=== PATIENT | female | born 1985 | race American Indian/Alaskan Native ===

== ENCOUNTER 2018-01-29 20:09 | Inpatient (IN) | payer OTHER ==
[2018-01-29] MEDS ORDERED: NACL 0.9% 1000 ML 1,000 ML IV ONE (20:26)
--- NOTE | 2018-01-29 20:32 | Emergency Department Report ---
History of Present Illness - General Chief Complaint: Overdose Stated Complaint: POSS OD Time Seen by Provider: 01/29/18 20:27 Source: patient, family, EMS Mode of arrival: Stretcher Limitations: Altered Mental Status - History of Present Illness Initial Comments: 32-year-old female with history of bipolar depression, has been more depressed recently, and reports that he found patient on arrival at home approximately 3 hours prior to patient arrival and, found her resting in bed, and he left her initially, but then came approximately an hour and a half later when he found her vomiting, with a note, apparently for suicidal intention, reporting "please cremate me". He contacted 911, EMS found patient somnolent but arousable, with stable vital signs, and 92% oxygen saturation on room air. She was transported for evaluation and treatment here. arrived shortly after, reports that patient has long-standing history of bipolar disorder, since she was a teenager, but all of her treatment had been in [place], and she has not seen a physician since they moved here 6 months ago. There were multiple different medications in a single ibuprofen bottle, dated 05/08/2017, and he reports that she probably took ibuprofen, Seroquel, unknown sedative or sleeping pill, and blue pills labeled serotonin. She has long-standing history of depression, but is not clear that she's had any prior suicide attempts, with possible exception of her initial diagnosis in her teenage years, when patient was not known to her at that time MD Complaint: intentional overdose -: hour(s) (3) Intent: suicide attempt How Overdose Was Discovered: family/friend present ( found patient) Context: Intentional Overdose: other (chronic depression, bipolar disorder) Treatments Prior to Arrival: none (vomited spontaneously) - Related Data Allergies Allergy/AdvReac Type Severity Reaction Status Date / Time Sulfa (Sulfonamide Allergy Unknown Verified 01/29/18 20:14 Antibiotics) ED Review of Systems ROS: Stated complaint: POSS OD Other details as noted in HPI Comment: gives much of history, no preceding emergency symptoms Constitutional: denies: chills, fever Respiratory: denies: cough, shortness of breath, wheezing Cardiovascular: denies: chest pain, palpitations Endocrine: no symptoms reported Gastrointestinal: denies: abdominal pain, nausea, diarrhea Musculoskeletal: denies: back pain, joint swelling, arthralgia Skin: denies: rash, lesions Neurological: denies: headache, weakness, paresthesias Psychiatric: depression. denies: suicidal thoughts (no history of suicidal thoughts recently) ED Past Medical Hx - Past Medical History Previous Medical History?: Yes Hx Psychiatric Treatment: Yes (Depression, Bipolar, previous suicide attempt) - Social History Smoking Status: Current Some Day Smoker ED Physical Exam - General Limitations: Altered Mental Status General appearance: obtunded (rales mobile vocal stimulus) - Head Head exam: Present: atraumatic - Eye Eye exam: Present: PERRL (pupils 4 mm, equally responsive,), EOMI (conjugate gaze) - ENT ENT exam: Present: normal exam, TM's normal bilaterally, other (small amount of vomitus around mouth) - Neck Neck exam: Present: normal inspection. Absent: tenderness - Respiratory Respiratory exam: Present: normal lung sounds bilaterally - Cardiovascular Cardiovascular Exam: Present: regular rate. Absent: systolic murmur, diastolic murmur - GI/Abdominal GI/Abdominal exam: Present: soft. Absent: tenderness, guarding, rebound - Rectal Rectal exam: Present: deferred - External exam: Present: normal external exam - Neurological Exam Neurological exam: Present: altered (obtunded, sedated, moves all extremities spontaneously, does not cooperate for commands) ED Course Vital Signs 01/29/18 01/29/18 01/29/18 20:15 20:28 20:56 Temperature 98.2 F Pulse Rate 102 H 92 H Respiratory 12 12 15 Rate Blood Pressure 158/94 O2 Sat by Pulse 97 97 99 Oximetry 01/30/18 01/30/18 01/30/18 00:31 01:00 01:30 Temperature Pulse Rate 88 83 84 Respiratory 16 22 16 Rate Blood Pressure 148/92 159/94 123/78 O2 Sat by Pulse 99 95 99 Oximetry 01/30/18 01/30/18 02:01 02:30 Temperature Pulse Rate 82 101 H Respiratory 17 19 Rate Blood Pressure 135/78 146/88 O2 Sat by Pulse 96 96 Oximetry - Reevaluation(s) Reevaluation #1: 01/29/18 23:03 Patient much more alert, but now gives history that she also took Tylenol PM, reports that she been feeling badly over the past couple days, says she does not want to , but was feeling very depressed, and did leave a suicide note. Stable, blood pressure is 139/83, pulse is 86, oxygen saturation is 96. Acetaminophen level is elevated at 72, which is in the toxic range, and she will need acetylcysteine antidote, and will need admission on this basis. Reevaluation #2: 01/30/18 00:04 Patient is stable on repeat examination, a good bit more alert, is ambulatory to help try and clean herself at the sink, having vomited again, but fairly clear fluid, no pill particles seen. Blood pressure is 136/76, pulse is 87 and regular, respiratory rate is 15 and oxygen saturation is 100%. Patient has a single sustain infusion going at this time. 1013 confinement signed on the basis of suicide attempt with intentional ingestion, and patient can be evaluated by psychiatric assessment while in intensive care. - Consultations Consultation #1: 01/29/18 23:06 Hospitalist on-call, Dr. Woods, contacted with findings of patient's acute suicide attempt and toxic Tylenol levels, as well as orders for acetylcysteine with reflex dosing of second and third doses successively. He will admit patient to intensive care, and I will place patient under 1013 confinement. 01/29/18 23:12 ED Medical Decision Making - Lab Data Result diagrams: 01/29/18 20:29 01/29/18 20:29 - EKG Data -: EKG Interpreted by Me (narrow complex sinus tachycardia, nonspecific, no acute ST-T wave elevation) EKG shows normal: sinus rhythm, intervals (QT interval normal at 469 ms corrected. QRS interval 93 ms AL interval 158 ms) Rate: tachycardia - Medical Decision Making Patient has taken an overdose, intentional ingestion, multiple medications, including acetaminophen, which is at an elevated level. She will need acetylcysteine antidote, and will need admission for further dosing, and observation. Given that she has made a suicide attempt, she will also need psychiatric evaluation, but will be placed under 1013 confinement. - Differential Diagnosis ingestion, suicide attempt, toxic ingestion Critical care time in (mins) excluding proc time.: 60 Critical care attestation.: If time is entered above; I have spent that time in minutes in the direct care of this critically ill patient, excluding procedure time. Critical Care Time: 60 minutes of critical care time was provided in assessing and stabilizing this patient with no known drug ingestion, with ultimate diagnosis of acetaminophen toxicity, as well as making preparations for administration of antidote and appropriate hospitalization. ED Disposition Clinical Impression: Bipolar 1 disorder Intentional acetaminophen overdose Qualifiers: Encounter type: initial encounter Qualified Code(s): T39.1X2A - Poisoning by 4- Aminophenol derivatives, intentional self-harm, initial encounter Depression Qualifiers: Depression Type: unspecified Qualified Code(s): F32.9 - Major depressive disorder, single episode, unspecified Disposition: DC-09 OP ADMIT IP TO THIS HOSP Is pt being admited?: Yes Does the pt Need Aspirin: No Condition: Stable Time of Disposition: 23:14
[2018-01-29 20:56] LABS: Basophils % (Auto) 0.6 % (0.0-1.8); Eosinophils # (Auto) 0.2 K/mm3 (0.0-0.4); Eosinophils % (Auto) 5.1 % (0.0-4.3); Hematocrit 36.8 % (30.3-42.9); Hemoglobin 12.3 gm/dl (10.1-14.3); Lymphocytes # (Auto) 1.5 K/mm3 (1.2-5.4); Lymphocytes % (Auto) 37.3 % (13.4-35.0); Mean Corpuscular HGB Conc 34 % (30-34); Mean Corpuscular Hemoglobin 27 pg (28-32); Mean Corpuscular Volume 82 fl (79-97); Monocytes # (Auto) 0.4 K/mm3 (0.0-0.8); Monocytes % (Auto) 9.1 % (0.0-7.3); Platelet Count 336 K/mm3 (140-440); Red Cell Distribution Width 14.4 % (13.2-15.2)
[2018-01-29 21:03] LABS: Bilirubin,Urine NEG (Negative); Blood,Urine MOD (Negative); Color,Urine Yellow (Yellow); Mucus,Urine FEW /HPF; Protein,Urine <15 mg/dL mg/dL (Negative); Urobilinogen,Urine < 2.0 mg/dL (<2.0)
[2018-01-29 21:04] LABS: BUN/Creatinine Ratio 20; Blood Urea Nitrogen 12 mg/dL (7-17); Hemolysis Index 2
[2018-01-29 21:06] LABS: Amphetamine Screen,Urine PRESUMPTIVE NEGATIVE; Benzodiazepines Screen,Urine PRESUMPTIVE NEGATIVE; Cannabinoid Screen,Urine PRESUMPTIVE NEGATIVE; Cocaine Screen,Urine PRESUMPTIVE NEGATIVE; Methadone Screen,Urine PRESUMPTIVE NEGATIVE; Opiate Screen,Urine PRESUMPTIVE NEGATIVE
[2018-01-29 21:30] LABS: Creatine Kinase MB 1.1 ng/mL (0.0-4.0)
--- NOTE | 2018-01-29 22:00 | XRay Report ---
FINAL REPORT PROCEDURE: XR CHEST 1V AP TECHNIQUE: Chest radiograph anteroposterior view. CPT 98235 HISTORY: altered mental status ingestion COMPARISON: No prior studies are available for comparison. FINDINGS: Heart: Normal. Mediastinum/Vessels: Normal. Lungs/Pleural space: Normal. Bony thorax: No acute osseous abnormality. Life support devices: None. IMPRESSION: No acute cardiopulmonary abnormality.
[2018-01-29] MEDS ORDERED: D5W IV ONE (23:30)
[2018-01-29] MEDS ORDERED: ACETADOTE IV ONE (23:30)
[2018-01-29] MEDS ORDERED: ZOFRAN ONE (23:56)
[2018-01-30] MEDS ORDERED: ZOFRAN IV ONE (00:16)
[2018-01-30] MEDS ORDERED: ACETADOTE IV ONE ×2 (00:30→05:00)
[2018-01-30] MEDS ORDERED: D5W IV ONE ×2 (00:30→05:00)
[2018-01-30] MEDS ORDERED: REGLAN ONE (00:47)
[2018-01-30] MEDS ORDERED: REGLAN IV ONE (01:12)
[2018-01-30] MEDS ORDERED: ZOFRAN IV PRN (02:40)
[2018-01-30] MEDS: HEPARIN SUB-Q SCH ×3 (03:00→23:33)
[2018-01-30 03:28] LABS: Alanine Aminotransferase 17 units/L (7-56)
[2018-01-30 03:29] LABS: Bilirubin,Direct < 0.2 mg/dL (0-0.2)
[2018-01-30] MEDS: NACL 0.9% 1000 ML 1,000 ML IV SCH ×2 (06:50→17:15)
[2018-01-30 07:28] LABS: Alanine Aminotransferase 17 units/L (7-56); Albumin 3.8 g/dL (3.9-5)
[2018-01-30 07:30] LABS: Bilirubin,Direct < 0.2 mg/dL (0-0.2)
--- NOTE | 2018-01-30 08:26 | History and Physical Report ---
CHIEF COMPLAINT: Drug overdose with mainly Tylenol and depression. HISTORY OF PRESENTING ILLNESS: The patient is a 32-year-old female with known history of depression and bipolar disorder, who was found by to be at home with nausea and vomiting and a suicidal note to cremate her. He came in initially and found the on the bed and then later on noticed that she was vomiting and then tried to ____, found the suicide note. The patient denies history of chest pain. Denied history of shortness of breath and said that the patient has been on medication for depression until the last 6 months when they moved over to [place] from [place] and since then she has not been on medication and has never had any suicidal intention or attempt in the past except for this recent event. There is no history of dizziness. No history of chest pain. The patient was brought to the Emergency Room, where she was evaluated and found to have elevated level of Tylenol. PAST MEDICAL HISTORY: Pertinent for the depression and bipolar disorder. PAST SURGICAL HISTORY: Unknown. FAMILY HISTORY: Noncontributory. SOCIAL HISTORY: The patient smokes cigarettes, does not drink alcohol and does not use illicit drugs. MEDICATIONS: The patient's home medications are not clearly defined. said he thinks, she is on Seroquel and on no sedative or sleeping pill and ____. ALLERGIES: THE PATIENT IS ALLERGIC TO SULFA DRUGS. REVIEW OF SYSTEMS: CONSTITUTIONAL: There is no fever, no chills, no diaphoresis. HEENT: There is no headache or sore throat. CARDIOVASCULAR: There is no chest pain or orthopnea. RESPIRATORY: There is no shortness of breath or cough. GASTROINTESTINAL: Nausea and vomiting present. No abdominal pain, no diarrhea, no constipation. NEUROLOGICAL: There is no numbness, no dizziness and no change in mental status. MUSCULOSKELETAL: There is no joint pain or swelling. DERMATOLOGICAL: There is no skin rash or itching. GENITOURINARY: There is no dysuria, hematuria or flank pain. Rest of system review is normal. PHYSICAL EXAMINATION: GENERAL: At the time of exam, the patient was found to be alert and oriented x 3. Hooks with depressed mood, but not in acute distress. VITAL SIGNS: Initial vital signs show temperature of 98.2 degrees Fahrenheit, pulse of 102, respirations 12, blood pressure 158/94, and O2 sat of 97% on room air. HEENT: Showed pupils to be equal, round, and reactive to light and accommodation. Extraocular muscles are intact. NECK: Supple with no JVD or carotid bruit. CARDIOVASCULAR SYSTEM: Showed normal first and second heart sounds with no gallops or murmurs. RESPIRATORY SYSTEM: Showed good air entry on both sides of the lungs with no abnormal breath sounds. GASTROINTESTINAL SYSTEM: Showed abdomen to be full, soft, and nontender with no organomegaly or rigidity. NEUROLOGICAL SYSTEM: Showed no focal deficits. MUSCULOSKELETAL SYSTEM: Showed no joint swelling or tenderness. DERMATOLOGICAL SYSTEM: Showed no skin rash. GENITOURINARY: Showing no costovertebral angle tenderness. PERTINENT LABORATORY DATA AND IMAGING STUDIES: The patient had a CBC done with low white cells of 4, normal hemoglobin, normal hematocrit with CBC differential showing elevated lymphocyte count of 37.3% and elevated monocyte count of 9.1%, and elevated eosinophil count of 5.1%, with blood gas being unremarkable. The patient's chemistry shows normal electrolytes, unremarkable renal function test, and unremarkable blood glucose level. Cardiac enzymes came back normal. Urinalysis came back normal. Toxicology screen shows elevated acetaminophen level of 72.5 with an unremarkable salicylate level. The patient is negative for all the other illicit drugs ranging from barbiturates, amphetamine through cocaine to marijuana. IMAGING STUDIES: The patient had a chest x-ray done that shows no active cardiopulmonary lesion. DIAGNOSES: 1. Tylenol overdose. 2. Suicidal attempt. 3. Depression. PLAN: The patient will be admitted to ICU and will continue the treatment with acetylcysteine for that in the Emergency Room according to Poison Control recommendation. Acetylcysteine has been already calculated to be given in the initial dose at 150 mg/kg with the second dose of ____ mg per kg for 4 hours and the batch of 100 mg/kg for 16 hours. The patient will have liver function tests and magnesium level checked stat since they have not been checked before and they will have repeat liver function tests and Tylenol level every 4 hours of 3 more levels, and the patient would be on IV Zofran 4 mg every 6 hours as needed for nausea and vomiting. DVT prophylaxis through heparin 5000 units subcutaneously q.12 hours, and the patient will be on IV normal saline at 125 mL an hour. The patient's diet will be regular diet. JOB# [id number] OCN/NTS
--- NOTE | 2018-01-30 09:28 | Consultation ---
History of Present Illness Consult date: 01/30/18 Reason for consult: other (drug overdose) History of present illness: Called to evaluate case of a 32-year-old -Martiniqu[place] female, admitted to the ICU due to acetaminophen overdose, suicidal attempt. According to the admission record, the patient was found unresponsive by her who poorly after taking large amounts of Tylenol pills and with suicide note by her side. She had been previously on treatment for depression, this also according to the record. They have recently moved from [place] and she had been reportedly without active depression treatment/medications for the past 6 months. There is to be admitted at arrival but no gross respiratory or airway compromise. [facility] once call and she was given initially acetylcysteine 150 mg/ kilogram IV and is currently following acetylcysteine acetaminophen overdose protocol. Called to evaluate during ICU monitoring. Currently no respiratory complaints including vomiting cough expectoration or chest pain. Initial laboratories noted below: Laboratory Tests 01/29/18 01/29/18 01/29/18 20:29 20:29 20:29 Glucose 111 H Total Bilirubin Direct Bilirubin Indirect Bilirubin AST ALT Alkaline Phosphatase HCG, Qual Salicylates < 0.3 L Urine Opiates Screen Urine Methadone Screen Acetaminophen 72.5 H Ur Barbiturates Screen Ur Phencyclidine Scrn Ur Amphetamines Screen U Benzodiazepines Scrn Urine Cocaine Screen U Marijuana (THC) Screen Plasma/Serum Alcohol 01/29/18 01/29/18 01/29/18 20:29 20:29 20:40 Glucose Total Bilirubin Direct Bilirubin Indirect Bilirubin AST ALT Alkaline Phosphatase HCG, Qual Negative Salicylates Urine Opiates Screen Presumptive negative Urine Methadone Screen Presumptive negative Acetaminophen Ur Barbiturates Screen Presumptive negative Ur Phencyclidine Scrn Presumptive negative Ur Amphetamines Screen Presumptive negative U Benzodiazepines Scrn Presumptive negative Urine Cocaine Screen Presumptive negative U Marijuana (THC) Screen Presumptive negative Plasma/Serum Alcohol 0.06 01/30/18 01/30/18 01/30/18 02:46 02:46 06:39 Glucose Total Bilirubin 0.30 0.40 Direct Bilirubin < 0.2 < 0.2 Indirect Bilirubin 0.1 0.2 AST 14 16 ALT 17 17 Alkaline Phosphatase 66 67 HCG, Qual Salicylates Urine Opiates Screen Urine Methadone Screen Acetaminophen 29.4 Ur Barbiturates Screen Ur Phencyclidine Scrn Ur Amphetamines Screen U Benzodiazepines Scrn Urine Cocaine Screen U Marijuana (THC) Screen Plasma/Serum Alcohol 01/30/18 06:39 Glucose Total Bilirubin Direct Bilirubin Indirect Bilirubin AST ALT Alkaline Phosphatase HCG, Qual Salicylates Urine Opiates Screen Urine Methadone Screen Acetaminophen 7.4 L Ur Barbiturates Screen Ur Phencyclidine Scrn Ur Amphetamines Screen U Benzodiazepines Scrn Urine Cocaine Screen U Marijuana (THC) Screen Plasma/Serum Alcohol Past History Past Medical History: other (depression) Medications and Allergies Allergies Allergy/AdvReac Type Severity Reaction Status Date / Time Sulfa (Sulfonamide Allergy Unknown Verified 01/29/18 20:14 Antibiotics) Active Meds: Active Medications Heparin Sodium (Porcine) (Heparin) 5,000 unit SUB-Q Q12HR LOLIS Last Admin: 01/30/18 03:00 Dose: 5,000 unit Acetylcysteine 8,755 mg/ (Dextrose) 1,043.775 mls @ 65.236 mls/hr IV ONCE ONE Stop: 01/30/18 20:59 Last Admin: 01/30/18 05:14 Dose: 65.236 mls/hr Sodium Chloride (Nacl 0.9% 1000 Ml) 1,000 mls @ 125 mls/hr IV DIRECT LOLIS Last Admin: 01/30/18 06:50 Dose: 125 mls/hr Ondansetron HCl (Zofran) 4 mg IV Q8H PRN PRN Reason: Nausea And Vomiting Review of Systems Constitutional: no weight loss, no weight gain, no fever, no chills, no sweats, no fatigue Breasts: deferred Cardiovascular: no chest pain, no orthopnea, no palpitations, no rapid/ irregular heart beat, no edema, no shortness of breath, no dyspnea on exertion Respiratory: no cough, no cough with sputum, no excessive sputum, no hemoptysis , no congestion, no wheezing, no pleurisy Gastrointestinal: no abdominal pain, no nausea, no vomiting, no diarrhea, no melena, no hematochezia, no loss of appetite, no early satiety Genitourinary Female: no dyspareunia, no dysmenorrhea Menstruation: no ammenorrhea Musculoskeletal: no neck stiffness, no neck pain Integumentary: no rash, no pruritis, no redness, no sores Neurological: no head injury, no transient paralysis, no paralysis, no weakness , no parathesias, no numbness, no tingling, no syncope, no convulsions Psychiatric: anxiety, insomnia, depression Hematologic/Lymphatic: no easy bruising, no easy bleeding, no lymphadenopathy, no lymphedema Physical Examination Vital signs: Vital Signs Temp Pulse Resp BP Pulse Ox 98.2 F 102 H 12 158/94 97 01/29/18 20:15 01/29/18 20:15 01/29/18 20:15 01/29/18 20:15 01/29/18 20:15 General appearance: no acute distress, alert Eyes: non-icteric ENT: oropharynx moist Neck: supple, no JVD Effort: normal Ascultation: Bilateral: clear Percussion: Bilateral: not dull Cardiovascular: regular rate and rhythm Gastrointestinal: normoactive bowel sounds, non-distended Integumentary: normal Extremities: no cyanosis, no edema, pink and warm Musculoskeletal: no deformities normal mental status, non-focal exam, CN II-XII normal, motor strength normal and depressed, other Results - Laboratory Findings CBC and BMP: 01/29/18 20:29 01/29/18 20:29 ABG POC ABG pH 7.370 (7.35-7.45) 01/29/18 21:01 POC ABG pCO2 41.2 (35-45) 01/29/18 21:01 POC ABG pO2 135 (80-105) H 01/29/18 21:01 POC ABG HCO3 23.8 01/29/18 21:01 POC ABG Total CO2 25 01/29/18 21:01 POC ABG O2 Sat 99 01/29/18 21:01 Abnormal lab findings: Abnormal Labs 01/29/18 01/29/18 01/29/18 20:29 20:29 20:29 WBC MCH Lymph % (Auto) Ida % (Auto) Eos % (Auto) POC ABG pO2 Creatinine 0.6 L Glucose 111 H Albumin Salicylates < 0.3 L Acetaminophen 72.5 H 01/29/18 01/29/18 01/30/18 20:29 21:01 06:39 WBC 4.0 L MCH 27 L Lymph % (Auto) 37.3 H Ida % (Auto) 9.1 H Eos % (Auto) 5.1 H POC ABG pO2 135 H Creatinine Glucose Albumin 3.8 L Salicylates Acetaminophen 01/30/18 06:39 WBC MCH Lymph % (Auto) Ida % (Auto) Eos % (Auto) POC ABG pO2 Creatinine Glucose Albumin Salicylates Acetaminophen 7.4 L Assessment and Plan Intentional acetaminophen overdose. Suicide attempt Depression, major History of bipolar disorder Recommendations We'll continue with acetylcysteine protocol and discontinue once consistently with normal ALT and low acetaminophen level Monitor LFT Gentle fluids for hydration Elevate head of bed, aspiration precautions Respiratory monitoring. Chest x-ray is unremarkable for aspiration pneumonia at this time. Oximetry appears to be adequate Psychiatry consultation We'll consider transfer out of the unit once the above has been completed with patient she'll be 213 Status in the Meantime Critical care time was 40 minutes of [id number] evaluation and coordination of care
[2018-01-30 10:32] LABS: Alanine Aminotransferase 15 units/L (7-56); Albumin 3.7 g/dL (3.9-5)
[2018-01-30 10:37] LABS: Bilirubin,Direct < 0.2 mg/dL (0-0.2)
--- NOTE | 2018-01-30 12:41 | Event Note ---
Date: 01/30/18 Patient was seen and evaluated this morning, patient was admitted this morning, patient was admitted for Tylenol overdose with suicidal intent, history of bipolar disorder. Electrolytes are normal, we'll continue to follow liver function test, INR. Psych consult placed. Patient is hemodynamically stable, alert and oriented, good to be transferred to the [facility] floor.
[2018-01-30] MEDS ORDERED: APRESOLINE IV PRN (15:16)
[2018-01-30 18:58] LABS: Alanine Aminotransferase 13 units/L (7-56); Albumin 3.4 g/dL (3.9-5); Bilirubin,Direct < 0.2 mg/dL (0-0.2)
[2018-01-30 19:28] LABS: INR 1.01 (0.87-1.13)
[2018-01-30 22:18] LABS: Alanine Aminotransferase 12 units/L (7-56)
[2018-01-31] MEDS: NACL 0.9% 1000 ML 1,000 ML IV SCH ×2 (05:21→17:04)
[2018-01-31 06:28] LABS: INR 0.99 (0.87-1.13)
[2018-01-31 06:48] LABS: Alanine Aminotransferase 12 units/L (7-56); Albumin 3.6 g/dL (3.9-5)
[2018-01-31 07:04] LABS: Bilirubin,Direct < 0.2 mg/dL (0-0.2)
--- NOTE | 2018-01-31 08:05 | Discharge Summary ---
Providers - Providers Date of Admission: 01/30/18 00:28 Attending physician: ESTHER GU MD 01/30/18 00:51 Consult to Physician [CONS] Routine Comment: Consulting Provider: TEVIN PINEDA Physician Instructions: Reason For Exam: CCU admit 01/30/18 08:06 Consult to Mental Health [CONS] Routine Reason For Exam: sucidal attempt Place consult to:: mental health Notified:: Tim Ramos NP Was contact made?: Yes If yes, spoke with:: Tim Ramos NP Time called:: 12:35 Comment:: Spoke with Mr. Ramos about consult for patient who is 1013. Primary care physician: APRIL MICHAEL Hospitalization Reason for admission: SUICIDAL IDEATION Condition: Stable Hospital course: Patient's [id number] female with extensive history of depression and also family history of depression was admitted to the hospital after she was found unresponsive following taking large amounts of suspected Tylenol pills was a suicidal note by her side to cremate her. On admission the patient was monitored in the ICU following initial administration of 450 mg of acetylcysteine. Her Tylenol level and liver enzymes are monitored which have remained stable. She was significantly improved and transferred out of the ICU to the medical floor she continues to do very well without any respiratory, gastroenterology or cardiac complaints. Patient was initially monitored in the ICU and then transferred to the medical floor doing well. She was evaluated by psychiatrist. Also evaluation was done by pulmonary. Patient continued on 1013 until she satisfied to staff that she is no longer try to herself or to anyone else. Family included an aunt who is psychotherapist when available patient was willing to sign a safety contract. Stable for discharge at this time extensive counseling was provided to the patient also hot lines for depression management was also provided and follow-up with psychiatrist. Acetaminophen overdose. Suicide attempt Depression, major HTN History of bipolar disorder EtOH abuse Disposition: - TO HOME OR SELFCARE Time spent for discharge: 35 MINS Core Measure Documentation - Palliative Care Palliative Care/ Comfort Measures: Not Applicable - Core Measures Any of the following diagnoses?: none - VTE Discharge Requirements Deep Vein Thrombosis/Pulmonary Embolism Present on Admission: No Exam - Physical Exam Narrative exam: VITAL SIGNS: Reviewed. GENERAL: The patient appeared well nourished and normally developed. Vital signs as documented. HEAD: No signs of head trauma. EYES: Pupils are equal. Extraocular motions intact. EARS: Hearing grossly intact. MOUTH: Oropharynx is normal. NECK: No adenopathy, no JVD. CHEST: Chest with clear breath sounds bilaterally. No wheezes, rales, or rhonchi. CARDIAC: Regular rate and rhythm. S1 and S2, without murmurs, gallops, or rubs. VASCULAR: No Edema. Peripheral pulses normal and equal in all extremities. ABDOMEN: Soft, without detectable tenderness. No sign of distention. No rebound or guarding, and no masses palpated. Bowel Sounds normal. MUSCULOSKELETAL: Good range of motion of all major joints. Extremities without clubbing, cyanosis or edema. NEUROLOGIC EXAM: Alert and oriented x 3. No focal sensory or strength deficits. Speech normal. Follows commands. PSYCHIATRIC: Mood normal. SKIN: Old well-healed scars. - Constitutional Vitals: Temp Pulse Resp BP Pulse Ox 98.7 F 120 H 18 154/85 97 01/30/18 20:00 01/30/18 18:41 01/30/18 18:41 01/30/18 18:41 01/30/18 18:41 Plan Activity: advance as tolerated, fall precautions Diet: regular Special Instructions: record daily BP diary, other (ETOH CESSATION) Follow up with: APRIL MICHAEL MD [Primary Care Provider] - 3-5 Days JUSTICE LUTHER MD [Staff Physician] - 7 Days
[2018-01-31] MEDS: HEPARIN SUB-Q SCH ×2 (13:44→22:40)
--- NOTE | 2018-01-31 15:00 | Progress Note ---
Assessment and Plan Assessment and plan: Patient's [id number] female with extensive history of depression and also family history of depression was admitted to the hospital after she was found unresponsive following taking large amounts of suspected Tylenol pills was a suicidal note by her side to cremate her. On admission the patient was monitored in the ICU following initial administration of 450 mg of acetylcysteine. Her Tylenol level and liver enzymes are monitored which have remained stable. She was significantly improved and transferred out of the ICU to the medical floor she continues to do very well without any respiratory, gastroenterology or cardiac complaints. Acetaminophen overdose. Suicide attempt Depression, major HTN History of bipolar disorder Plan Continue current 1013. Discontinue IV fluids, patient tolerating diet Extensive counselling greater than 15 mins provided Patient is medically stable for transfer to inpatient Psych DVT/GI prophy Plan discussed with patient and the Psych team. All questions answered History Interval history: Patient is seen today for: Suicidal attempt, overdose intentional. Seen and examined at bedside; 24hour events reviewed; nursing staff ; no adverse overnight events reported to me; Denies any chest pain, nausea, vomiting , diarrhea No fever noted blood pressure controlled Hospitalist Physical - Physical exam Narrative exam: VITAL SIGNS: Reviewed. GENERAL: The patient appeared well nourished and normally developed. Vital signs as documented. HEAD: No signs of head trauma. EYES: Pupils are equal. Extraocular motions intact. EARS: Hearing grossly intact. MOUTH: Oropharynx is normal. NECK: No adenopathy, no JVD. CHEST: Chest with clear breath sounds bilaterally. No wheezes, rales, or rhonchi. CARDIAC: Regular rate and rhythm. S1 and S2, without murmurs, gallops, or rubs. VASCULAR: No Edema. Peripheral pulses normal and equal in all extremities. ABDOMEN: Soft, without detectable tenderness. No sign of distention. No rebound or guarding, and no masses palpated. Bowel Sounds normal. MUSCULOSKELETAL: Good range of motion of all major joints. Extremities without clubbing, cyanosis or edema. NEUROLOGIC EXAM: Alert and oriented x 3. No focal sensory or strength deficits. Speech normal. Follows commands. PSYCHIATRIC: Mood normal. SKIN: Old well-healed scars. - Constitutional Vitals: Temp Pulse Resp BP Pulse Ox 98.7 F 78 16 142/103 97 01/30/18 20:00 01/31/18 11:00 01/30/18 22:00 01/31/18 11:00 01/30/18 18:41 Results - Labs CBC & Chem 7: 01/29/18 20:29 01/29/18 20: Labs: Laboratory Last Values WBC 4.0 K/mm3 (4.5-11.0) L 01/29/18 20: RBC 4.50 M/mm3 (3.65-5.03) 01/29/18 20: Hgb 12.3 gm/dl (10.1-14.3) 01/29/18 20: Hct 36.8 % (30.3-42.9) 01/29/18 20: MCV 82 fl (79-97) 01/29/18: MCH 27 pg (28-32) L 01/29/18: MCHC 34 % (30-34) 01/29/18: RDW 14.4 % (13.2-15.2) 01/29/18: Plt Count 336 K/mm3 (140-440) 01/29/18 20: Lymph % (Auto) 37.3 % (13.4-35.0) H 01/29/18 20: [place] % (Auto) 9.1 % (0.0-7.3) H 01/29/18: Eos % (Auto) 5.1 % (0.0-4.3) H 01/29/18: Baso % (Auto) 0.6 % (0.0-1.8) 01/29/18: Lymph # 1.5 K/mm3 (1.2-5.4) 01/29/18 20: [place] # 0.4 K/mm3 (0.0-0.8) 01/29/18 20: Eos # 0.2 K/mm3 (0.0-0.4) 01/29/18 20: Baso # 0.0 K/mm3 (0.0-0.1) 01/29/18 20: Seg Neutrophils % 47.9 % (40.0-70.0) 01/29/18 20: Seg Neutrophils # 1.9 K/mm3 (1.8-7.7) 01/29/18 20: PT 13.6 Sec. (12.2-14.9) 01/31/18 05:28 INR 0.99 (0.87-1.13) 01/31/18 05:28 POC ABG pH 7.370 (7.35-7.45) 01/29/18 21:01 POC ABG pCO2 41.2 (35-45) 01/29/18 21:01 POC ABG pO2 135 (80-105) H 01/29/18 21:01 POC ABG HCO3 23.8 01/29/18 21:01 POC ABG Total CO2 25 01/29/18 21:01 POC ABG O2 Sat 99 01/29/18 21:01 POC ABG Base Excess -1 01/29/18 21:01 FiO2 28 % 01/29/18 21:01 Sodium 140 mmol/L (137-145) 01/29/18 20:29 Potassium 3.6 mmol/L (3.6-5.0) 01/29/18 20:29 Chloride 102.2 mmol/L (98-107) 01/29/18 20:29 Carbon Dioxide 24 mmol/L (22-30) 01/29/18 20:29 Anion Gap 17 mmol/L 01/29/18 20:29 BUN 12 mg/dL (7-17) 01/29/18 20:29 Creatinine 0.6 mg/dL (0.7-1.2) L 01/29/18 20:29 Estimated GFR > 60 ml/min 01/29/18 20:29 BUN/Creatinine Ratio 20 % 01/29/18 20:29 Glucose 111 mg/dL (65-100) H 01/29/18 20:29 Calcium 9.0 mg/dL (8.4-10.2) 01/29/18 20:29 Magnesium 1.70 mg/dL (1.7-2.3) 01/30/18 02:46 Total Bilirubin 0.40 mg/dL (0.1-1.2) 01/31/18 05:28 Direct Bilirubin < 0.2 mg/dL (0-0.2) 01/31/18 05:28 Indirect Bilirubin 0.2 mg/dL 01/31/18 05:28 AST 9 units/L (5-40) 01/31/18 05:28 ALT 12 units/L (7-56) 01/31/18 05:28 Alkaline Phosphatase 71 units/L (35-129) 01/31/18 05:28 Total Creatine Kinase 100 units/L (30-135) 01/29/18 21:13 CK-MB (CK-2) 1.1 ng/mL (0.0-4.0) 01/29/18 21:13 CK-MB (CK-2) Rel Index 1.1 (0-4) 01/29/18 21:13 Troponin T < 0.010 ng/mL (0.00-0.029) 01/29/18 21:13 Total Protein 6.8 g/dL (6.3-8.2) 01/31/18 05:28 Albumin 3.6 g/dL (3.9-5) L 01/31/18 05:28 Albumin/Globulin Ratio 1.1 % 01/31/18 05:28 HCG, Qual Negative (Negative) 01/29/18 20:29 Urine Color Yellow (Yellow) 01/29/18 20:40 Urine Turbidity Clear (Clear) 01/29/18 20:40 Urine pH 5.0 (5.0-7.0) 01/29/18 20:40 Ur Specific [place] 1.017 (1.003-1.030) 01/29/18 20:40 Urine Protein <15 mg/dl mg/dL (Negative) 01/29/18 20:40 Urine Glucose (UA) Neg mg/dL (Negative) 01/29/18 20:40 Urine Ketones Neg mg/dL (Negative) 01/29/18 20:40 Urine Blood Mod (Negative) 01/29/18 20:40 Urine Nitrite Neg (Negative) 01/29/18 20:40 Urine Bilirubin Neg (Negative) 01/29/18 20:40 Urine Urobilinogen < 2.0 mg/dL (<2.0) 01/29/18 20:40 Ur Leukocyte Esterase Neg (Negative) 01/29/18 20:40 Urine WBC (Auto) 2.0 /HPF (0.0-6.0) 01/29/18 20:40 Urine RBC (Auto) 13.0 /HPF (0.0-6.0) 01/29/18 20:40 Urine Mucus Few /HPF 01/29/18 20:40 Salicylates < 0.3 mg/dL (2.8-20.0) L 01/29/18 20:29 Urine Opiates Screen Presumptive negative 01/29/18 20:40 Urine Methadone Screen Presumptive negative 01/29/18 20:40 Acetaminophen < 5.0 ug/mL (10.0-30.0) L 01/30/18 18:17 Ur Barbiturates Screen Presumptive negative 01/29/18 20:40 Ur Phencyclidine Scrn Presumptive negative 01/29/18 20:40 Ur Amphetamines Screen Presumptive negative 01/29/18 20:40 U Benzodiazepines Scrn Presumptive negative 01/29/18 20:40 Urine Cocaine Screen Presumptive negative 01/29/18 20:40 U Marijuana (THC) Screen Presumptive negative 01/29/18 20:40 Drugs of Abuse Note Disclamer 01/29/18 20:40 Plasma/Serum Alcohol 0.06 % (0-0.07) 01/29/18 20:29
[2018-01-31] MEDS ORDERED: APRESOLINE IV PRN (15:01)
--- NOTE | 2018-01-31 18:54 | Consultation ---
History of Present Illness - Reason for Consult Consult date: 01/31/18 Reason for consult: Mental Health Evaluation Requesting physician: ESTHER GU - Chief Complaint Chief complaint: "So much going on" - History of Present Psychiatric Illness 32 y.o. AA female presenting to the ER for overdose. Today the patient is calm and cooperative during the assessment. She stated that she has so much going on in her personal life (marital problems and financial issues). She stated that she moved from [place], [place] to [place], [place] for a "fresh start." She stated that the move has not worked out for the best. She stated that her marriage has gotten worse. She stated that she was dx with depression several yrs ago and took Zoloft. She stated that she used to cut her arms because she didn't know how to cope with stress. She stated that prior to her admission to [facility], she had been arguing with her , drunk vodka, and felt overwhelmed. Per the patient, she took multiple Tylenol PM pills to get rest and "hoped" to wake up. She stated not sleeping the night before because she had been worrying about her current situation and felt "alone." She was vague when asked about a past suicide attempt in the past. She stated she need time to think about her future. She denies SI/HI's and AVH's. She denies any manic episodes in the past. She rate her depression/anxiety 7/10, with 10 being the worse. She stated that she finally slept well last night and denies a poor appetite. She denies recreational drug use, but admitted to drinking more than usually the day of her crisis. The patient could not confirm or deny a suicide note that she may have written, per the ER physician's note. Medications and Allergies Allergies Allergy/AdvReac Type Severity Reaction Status Date / Time Sulfa (Sulfonamide Allergy Unknown Verified 01/29/18 20:14 Antibiotics) Active Meds: Active Medications Heparin Sodium (Porcine) (Heparin) 5,000 unit SUB-Q Q12HR LOLIS Last Admin: 01/31/18 13:44 Dose: 5,000 unit Hydralazine HCl (Apresoline) 10 mg IV Q4HR PRN PRN Reason: Hypertension Sodium Chloride (Nacl 0.9% 1000 Ml) 1,000 mls @ 125 mls/hr IV DIRECT LOLIS Last Admin: 01/31/18 17:04 Dose: 75 mls/hr Ondansetron HCl (Zofran) 4 mg IV Q8H PRN PRN Reason: Nausea And Vomiting Past psychiatric history - Past Medical History Past Medical History: No medical history (vaginal deliveries), other - past Psychiatric treatment and history Psych: Depression psychiatric treatment history: Hx of self injury and took antidepressants in the past. Family hx of depression. - Social History Social history: lives with family Mental Status Exam - Vital signs Last Vital Signs Temp 98.7 F 01/30/18 20:00 Pulse 78 01/31/18 11:00 Resp 16 01/30/18 22:00 BP 142/103 01/31/18 11:00 Pulse Ox 97 01/30/18 18:41 - Exam Narrative exam: MSE: Appearance: calm, cooperative Behavior: regular eye contact Speech: regular rate and tone Mood: "depressed" withdrawn Affect: flat Thought Process: circumstantial Thought Content: denies SI/HI's and AVH's Motor Activity: lying in bed Cognition: A/O x3 Insight: fair Judgment: variable Results Result Diagrams: 01/29/18 20:29 01/29/18 20:29 Abnormal lab results 01/30/18 01/30/18 01/31/18 Range/Units 18:17 18:17 05:28 Albumin 3.4 L 3.6 L (3.9-5) g/dL Acetaminophen < 5.0 L (10.0-30.0) ug/mL All other labs normal. Assessment and Plan Assessment and plan: Impression: MDD, Severe Type. R/O Alcohol Use DO. Today the patient is calm and cooperative during the assessment. Alcohol serum on admission 0.06. DDx: R/O Bipolar DO, R/O Personality DO Recommendation/Plan: Continue 1013 with placement to inpatient psy services. Start Zoloft 50 mg PO daily for depression and Vistaril 25 mg PO TID for anxiety. Discussed possible suicidality/medication induced precious with patient reference Zoloft. Discussed generalized coping skills with patient. Discussed the importance to abstain from excessive alcohol consumption (etoh).
[2018-01-31] MEDS: VISTARIL PO SCH (22:40)
[2018-01-31] MEDS: ZOLOFT PO SCH (22:40)
[2018-02-01] MEDS ORDERED: ISOPTO TEARS 0.5% OU PRN (01:33)
[2018-02-01] MEDS: VISTARIL PO SCH ×3 (09:43→21:52)
[2018-02-01] MEDS: ZOLOFT PO SCH (09:43)
[2018-02-01] MEDS: HEPARIN SUB-Q SCH ×2 (09:44→22:05)
--- NOTE | 2018-02-01 13:33 | Progress Note ---
Subjective - Reason for Consult Consult date: 02/01/18 Reason for consult: Psychiatric Follow-up Evaluation - Chief Complaint Chief complaint: " I'm fine." Patient is a 32 year old female who presents to the emergency room for overdose. Today the patient is cooperative but anxious during the assessment. She states " I'm here because I had an incident at home. I took more pills than I intended to take. I was having financial issues." However, since I've been in the hospital I've had a couple of phone interviews. She later states " I'm suppose to start a new job on Tuesday at an [employer]." It's possible that patient could be minimizing symptoms. Mental Status Exam - Vital signs Last Vital Signs Temp 98.5 F 02/01/18 07:47 Pulse 81 02/01/18 07:47 Resp 18 02/01/18 07:47 BP 148/106 02/01/18 07:47 Pulse Ox 97 02/01/18 07:47 - Exam Narrative exam: Mental Status Exam: General Appearance: Casually dressed- hospital gown Attitude/Behavior: Cooperative Sensorium: Clear Orientation: Alert and oriented x 4 (person, place, time, date, and situation) Speech: Normal rate and tone Psychomotor & Musculoskeletal: Sitting up in bed Mood: "I'm fine. " Anxious and depressed Affect: Constricted Thought Process: Circumstantial Thought Content: Reality Oriented Perception: Patient denies A/V/T hallucinations Concentration/Attention: Impaired Suicidal ideation/plan: Patient denies Homicidal ideation/plan: Patient denies Judgment: Variable Insight: Fair Assessment and Plan Assessment and plan: Impression: MDD, Severe Type. R/O Alcohol Use DO. Today the patient is cooperative but anxious during the assessment. Patient anxious to discharge, therefore patient is minimizing symptoms. Alcohol serum on admission 0.06. DDx: R/O Bipolar DO, R/O Personality DO Recommendation/Plan: 1. Continue 1013 with placement to inpatient psychiatric services. 2. Continue Zoloft 50 mg PO daily for depression and Vistaril 25 mg PO TID for anxiety. Discussed possible suicidality/medication induced precious with patient reference Zoloft. 3. Discussed generalized coping skills with patient. Discussed the importance to abstain from excessive alcohol consumption (etoh).
--- NOTE | 2018-02-01 13:56 | Progress Note ---
Assessment and Plan Assessment and plan: Patient's [id number] female with extensive history of depression and also family history of depression was admitted to the hospital after she was found unresponsive following taking large amounts of suspected Tylenol pills was a suicidal note by her side to cremate her. On admission the patient was monitored in the ICU following initial administration of 450 mg of acetylcysteine. Her Tylenol level and liver enzymes are monitored which have remained stable. She was significantly improved and transferred out of the ICU to the medical floor she continues to do very well without any respiratory, gastroenterology or cardiac complaints. Acetaminophen overdose. Suicide attempt Depression, major HTN History of bipolar disorder Plan Continue current 1013. Discontinue IV fluids, patient tolerating diet Zoflot and Visteril started per PSYCHIATRY Extensive counselling greater than 15 mins provided Patient is medically stable for transfer to inpatient Psych DVT/GI prophy Plan discussed with patient and the Psych team. All questions answered History Interval history: Patient is seen today for: Suicidal attempt, overdose intentional. Seen and examined at bedside; 24hour events reviewed; nursing staff ; no adverse overnight events reported to me; Denies any chest pain, nausea, vomiting , diarrhea No fever noted blood pressure controlled Hospitalist Physical - Physical exam Narrative exam: VITAL SIGNS: Reviewed. GENERAL: The patient appeared well nourished and normally developed. Vital signs as documented. HEAD: No signs of head trauma. EYES: Pupils are equal. Extraocular motions intact. EARS: Hearing grossly intact. MOUTH: Oropharynx is normal. NECK: No adenopathy, no JVD. CHEST: Chest with clear breath sounds bilaterally. No wheezes, rales, or rhonchi. CARDIAC: Regular rate and rhythm. S1 and S2, without murmurs, gallops, or rubs. VASCULAR: No Edema. Peripheral pulses normal and equal in all extremities. ABDOMEN: Soft, without detectable tenderness. No sign of distention. No rebound or guarding, and no masses palpated. Bowel Sounds normal. MUSCULOSKELETAL: Good range of motion of all major joints. Extremities without clubbing, cyanosis or edema. NEUROLOGIC EXAM: Alert and oriented x 3. No focal sensory or strength deficits. Speech normal. Follows commands. PSYCHIATRIC: Mood normal. SKIN: Old well-healed scars. - Constitutional Vitals: Temp Pulse Resp BP Pulse Ox 98.5 F 81 18 148/106 97 02/01/18 07:47 02/01/18 07:47 02/01/18 07:47 02/01/18 07:47 02/01/18 07:47 Results - Labs CBC & Chem 7: 01/29/18 20:01/29/18 20: Labs: Laboratory Last Values WBC 4.0 K/mm3 (4.5-11.0) L 01/29/18 20: RBC 4.50 M/mm3 (3.65-5.03) 01/29/18 20: Hgb 12.3 gm/dl (10.1-14.3) 01/29/18 20: Hct 36.8 % (30.3-42.9) 01/29/18: MCV 82 fl (79-97) 01/29/18: MCH 27 pg (28-32) L 01/29/18: MCHC 34 % (30-34) 01/29/18: RDW 14.4 % (13.2-15.2) 01/29/18: Plt Count 336 K/mm3 (140-440) 01/29/18 20: Lymph % (Auto) 37.3 % (13.4-35.0) H 01/29/18: [place] % (Auto) 9.1 % (0.0-7.3) H 01/29/18: Eos % (Auto) 5.1 % (0.0-4.3) H 01/29/18: Baso % (Auto) 0.6 % (0.0-1.8) 01/29/18: Lymph # 1.5 K/mm3 (1.2-5.4) 01/29/18 20: [place] # 0.4 K/mm3 (0.0-0.8) 01/29/18: Eos # 0.2 K/mm3 (0.0-0.4) 01/29/18: Baso # 0.0 K/mm3 (0.0-0.1) 01/29/18 20: Seg Neutrophils % 47.9 % (40.0-70.0) 01/29/18 20: Seg Neutrophils # 1.9 K/mm3 (1.8-7.7) 01/29/18 20:29 PT 13.6 Sec. (12.2-14.9) 01/31/18 05:28 INR 0.99 (0.87-1.13) 01/31/18 05:28 POC ABG pH 7.370 (7.35-7.45) 01/29/18 21:01 POC ABG pCO2 41.2 (35-45) 01/29/18 21:01 POC ABG pO2 135 (80-105) H 01/29/18 21:01 POC ABG HCO3 23.8 01/29/18 21:01 POC ABG Total CO2 25 01/29/18 21:01 POC ABG O2 Sat 99 01/29/18 21:01 POC ABG Base Excess -1 01/29/18 21:01 FiO2 28 % 01/29/18 21:01 Sodium 140 mmol/L (137-145) 01/29/18 20:29 Potassium 3.6 mmol/L (3.6-5.0) 01/29/18 20:29 Chloride 102.2 mmol/L (98-107) 01/29/18 20:29 Carbon Dioxide 24 mmol/L (22-30) 01/29/18 20:29 Anion Gap 17 mmol/L 01/29/18 20:29 BUN 12 mg/dL (7-17) 01/29/18 20:29 Creatinine 0.6 mg/dL (0.7-1.2) L 01/29/18 20:29 Estimated GFR > 60 ml/min 01/29/18 20:29 BUN/Creatinine Ratio 20 % 01/29/18 20:29 Glucose 111 mg/dL (65-100) H 01/29/18 20:29 Calcium 9.0 mg/dL (8.4-10.2) 01/29/18 20:29 Magnesium 1.70 mg/dL (1.7-2.3) 01/30/18 02:46 Total Bilirubin 0.40 mg/dL (0.1-1.2) 01/31/18 05:28 Direct Bilirubin < 0.2 mg/dL (0-0.2) 01/31/18 05:28 Indirect Bilirubin 0.2 mg/dL 01/31/18 05:28 AST 9 units/L (5-40) 01/31/18 05:28 ALT 12 units/L (7-56) 01/31/18 05:28 Alkaline Phosphatase 71 units/L (35-129) 01/31/18 05:28 Total Creatine Kinase 100 units/L (30-135) 01/29/18 21:13 CK-MB (CK-2) 1.1 ng/mL (0.0-4.0) 01/29/18 21:13 CK-MB (CK-2) Rel Index 1.1 (0-4) 01/29/18 21:13 Troponin T < 0.010 ng/mL (0.00-0.029) 01/29/18 21:13 Total Protein 6.8 g/dL (6.3-8.2) 01/31/18 05:28 Albumin 3.6 g/dL (3.9-5) L 01/31/18 05:28 Albumin/Globulin Ratio 1.1 % 01/31/18 05:28 HCG, Qual Negative (Negative) 01/29/18 20:29 Urine Color Yellow (Yellow) 01/29/18 20:40 Urine Turbidity Clear (Clear) 01/29/18 20:40 Urine pH 5.0 (5.0-7.0) 01/29/18 20:40 Ur Specific [place] 1.017 (1.003-1.030) 01/29/18 20:40 Urine Protein <15 mg/dl mg/dL (Negative) 01/29/18 20:40 Urine Glucose (UA) Neg mg/dL (Negative) 01/29/18 20:40 Urine Ketones Neg mg/dL (Negative) 01/29/18 20:40 Urine Blood Mod (Negative) 01/29/18 20:40 Urine Nitrite Neg (Negative) 01/29/18 20:40 Urine Bilirubin Neg (Negative) 01/29/18 20:40 Urine Urobilinogen < 2.0 mg/dL (<2.0) 01/29/18 20:40 Ur Leukocyte Esterase Neg (Negative) 01/29/18 20:40 Urine WBC (Auto) 2.0 /HPF (0.0-6.0) 01/29/18 20:40 Urine RBC (Auto) 13.0 /HPF (0.0-6.0) 01/29/18 20:40 Urine Mucus Few /HPF 01/29/18 20:40 Salicylates < 0.3 mg/dL (2.8-20.0) L 01/29/18 20:29 Urine Opiates Screen Presumptive negative 01/29/18 20:40 Urine Methadone Screen Presumptive negative 01/29/18 20:40 Acetaminophen < 5.0 ug/mL (10.0-30.0) L 01/30/18 18:17 Ur Barbiturates Screen Presumptive negative 01/29/18 20:40 Ur Phencyclidine Scrn Presumptive negative 01/29/18 20:40 Ur Amphetamines Screen Presumptive negative 01/29/18 20:40 U Benzodiazepines Scrn Presumptive negative 01/29/18 20:40 Urine Cocaine Screen Presumptive negative 01/29/18 20:40 U Marijuana (THC) Screen Presumptive negative 01/29/18 20:40 Drugs of Abuse Note Disclamer 01/29/18 20:40 Plasma/Serum Alcohol 0.06 % (0-0.07) 01/29/18 20:29
[2018-02-01] MEDS ORDERED: NORVASC PO SCH (22:25)
--- NOTE | 2018-02-02 10:11 | Progress Note ---
Subjective - Reason for Consult Consult date: 02/02/18 Reason for consult: Psychiatry Follow-up - Chief Complaint Chief complaint: "I have done some thinking" 32 y.o. AA female presenting to the ER for overdose. Today the patient is calm and cooperative during the assessment. She stated that she has spoken with her reference their marriage and they agreed on family therapy when discharged. She stated that she want to make better decisions when dealing with stressors. She denies SI/HI's and AVHs'. She stated that the Vistaril causes her to be "jittery." Mental Status Exam - Vital signs Last Vital Signs Temp 97.4 F L 02/02/18 09:35 Pulse 90 02/02/18 09:35 Resp 18 02/02/18 09:35 BP 136/80 02/02/18 09:35 Pulse Ox 97 02/02/18 09:35 - Exam Narrative exam: MSE: Appearance: calm, cooperative Behavior: regular eye contact Speech: regular rate and tone Mood: "feel better" Affect: congruent to mood Thought Process: circumstantial Thought Content: denies SI/HI's and AVH's Motor Activity: lying in bed Cognition: A/O x3 Insight: fair Judgment: variable Assessment and Plan Impression: MDD, Severe Type. R/O Alcohol Use DO. Today the patient is calm and cooperative during the assessment. Alcohol serum on admission 0.06. DDx: R/O Bipolar DO, R/O Personality DO Recommendation/Plan: Continue 1013 with placement to inpatient psy services. Continue Zoloft 50 mg PO daily for depression. D/C'd Vistaril. Discussed possible suicidality/medication induced precious with patient reference Zoloft. Discussed generalized coping skills with patient. Discussed the importance to abstain from excessive alcohol consumption (etoh).
[2018-02-02] MEDS: HEPARIN SUB-Q SCH ×2 (11:24→21:56)
[2018-02-02] MEDS: ZOLOFT PO SCH (11:25)
[2018-02-02] MEDS ORDERED: MOTRIN PO ONE (17:05)
[2018-02-02] MEDS ORDERED: MOTRIN PO NR (17:30)
--- NOTE | 2018-02-03 07:12 | Progress Note ---
Assessment and Plan Assessment and plan: Patient's muaunrmu-[id number]-rti female with extensive history of depression and also family history of depression was admitted to the hospital after she was found unresponsive following taking large amounts of suspected Tylenol pills was a suicidal note by her side to cremate her. On admission the patient was monitored in the ICU following initial administration of 450 mg of acetylcysteine. Her Tylenol level and liver enzymes are monitored which have remained stable. She was significantly improved and transferred out of the ICU to the medical floor she continues to do very well without any respiratory, gastroenterology or cardiac complaints. Acetaminophen overdose. Suicide attempt Depression, major HTN History of bipolar disorder Plan Continue current 1013. Discontinue IV fluids, patient tolerating diet Zoflot and Visteril started per PSYCHIATRY Extensive counselling greater than 15 mins provided Patient is medically stable for transfer to inpatient Psych DVT/GI prophy Plan discussed with patient and the Psych team. Awaiting placement by psych History Interval history: Patient is seen today for: Suicidal attempt, overdose intentional. Seen and examined at bedside; 24hour events reviewed; nursing staff ; no adverse overnight events reported to me; Denies any chest pain, nausea, vomiting , diarrhea No fever noted blood pressure controlled Hospitalist Physical - Physical exam Narrative exam: VITAL SIGNS: Reviewed. GENERAL: The patient appeared well nourished and normally developed. Vital signs as documented. HEAD: No signs of head trauma. EYES: Pupils are equal. Extraocular motions intact. EARS: Hearing grossly intact. MOUTH: Oropharynx is normal. NECK: No adenopathy, no JVD. CHEST: Chest with clear breath sounds bilaterally. No wheezes, rales, or rhonchi. CARDIAC: Regular rate and rhythm. S1 and S2, without murmurs, gallops, or rubs. VASCULAR: No Edema. Peripheral pulses normal and equal in all extremities. ABDOMEN: Soft, without detectable tenderness. No sign of distention. No rebound or guarding, and no masses palpated. Bowel Sounds normal. MUSCULOSKELETAL: Good range of motion of all major joints. Extremities without clubbing, cyanosis or edema. NEUROLOGIC EXAM: Alert and oriented x 3. No focal sensory or strength deficits. Speech normal. Follows commands. PSYCHIATRIC: Mood normal. SKIN: Old well-healed scars. - Constitutional Vitals: Temp Pulse Resp BP Pulse Ox 98.1 F 75 20 131/93 98 02/03/18 01:44 02/03/18 01:44 02/03/18 01:44 02/03/18 01:44 02/03/18 01:44 Results - Labs CBC & Chem 7: 01/29/18 20:01/29/18 20: Labs: Laboratory Last Values WBC 4.0 K/mm3 (4.5-11.0) L 01/29/18 20: RBC 4.50 M/mm3 (3.65-5.03) 01/29/18 20: Hgb 12.3 gm/dl (10.1-14.3) 01/29/18 20: Hct 36.8 % (30.3-42.9) 01/29/18: MCV 82 fl (79-97) 01/29/18 20: MCH 27 pg (28-32) L 01/29/18 20: MCHC 34 % (30-34) 01/29/18: RDW 14.4 % (13.2-15.2) 01/29/18: Plt Count 336 K/mm3 (140-440) 01/29/18 20: Lymph % (Auto) 37.3 % (13.4-35.0) H 01/29/18 20: [place] % (Auto) 9.1 % (0.0-7.3) H 01/29/18 20: Eos % (Auto) 5.1 % (0.0-4.3) H 01/29/18 20: Baso % (Auto) 0.6 % (0.0-1.8) 01/29/18: Lymph # 1.5 K/mm3 (1.2-5.4) 01/29/18 20: [place] # 0.4 K/mm3 (0.0-0.8) 01/29/18: Eos # 0.2 K/mm3 (0.0-0.4) 01/29/18 20: Baso # 0.0 K/mm3 (0.0-0.1) 01/29/18 20: Seg Neutrophils % 47.9 % (40.0-70.0) 01/29/18 20: Seg Neutrophils # 1.9 K/mm3 (1.8-7.7) 04/29/18 20:29 PT 13.6 Sec. (12.2-14.9) 01/31/18 05:28 INR 0.99 (0.87-1.13) 01/31/18 05:28 POC ABG pH 7.370 (7.35-7.45) 01/29/18 21:01 POC ABG pCO2 41.2 (35-45) 01/29/18 21:01 POC ABG pO2 135 (80-105) H 01/29/18 21:01 POC ABG HCO3 23.8 01/29/18 21:01 POC ABG Total CO2 25 01/29/18 21:01 POC ABG O2 Sat 99 01/29/18 21:01 POC ABG Base Excess -1 01/29/18 21:01 FiO2 28 % 01/29/18 21:01 Sodium 140 mmol/L (137-145) 01/29/18 20:29 Potassium 3.6 mmol/L (3.6-5.0) 01/29/18 20:29 Chloride 102.2 mmol/L (98-107) 01/29/18 20:29 Carbon Dioxide 24 mmol/L (22-30) 01/29/18 20:29 Anion Gap 17 mmol/L 01/29/18 20:29 BUN 12 mg/dL (7-17) 01/29/18 20:29 Creatinine 0.6 mg/dL (0.7-1.2) L 01/29/18 20:29 Estimated GFR > 60 ml/min 01/29/18 20:29 BUN/Creatinine Ratio 20 % 01/29/18 20:29 Glucose 111 mg/dL (65-100) H 01/29/18 20:29 Calcium 9.0 mg/dL (8.4-10.2) 01/29/18 20:29 Magnesium 1.70 mg/dL (1.7-2.3) 01/30/18 02:46 Total Bilirubin 0.40 mg/dL (0.1-1.2) 01/31/18 05:28 Direct Bilirubin < 0.2 mg/dL (0-0.2) 01/31/18 05:28 Indirect Bilirubin 0.2 mg/dL 01/31/18 05:28 AST 9 units/L (5-40) 01/31/18 05:28 ALT 12 units/L (7-56) 01/31/18 05:28 Alkaline Phosphatase 71 units/L (35-129) 01/31/18 05:28 Total Creatine Kinase 100 units/L (30-135) 01/29/18 21:13 CK-MB (CK-2) 1.1 ng/mL (0.0-4.0) 01/29/18 21:13 CK-MB (CK-2) Rel Index 1.1 (0-4) 01/29/18 21:13 Troponin T < 0.010 ng/mL (0.00-0.029) 01/29/18 21:13 Total Protein 6.8 g/dL (6.3-8.2) 01/31/18 05:28 Albumin 3.6 g/dL (3.9-5) L 01/31/18 05:28 Albumin/Globulin Ratio 1.1 % 01/31/18 05:28 HCG, Qual Negative (Negative) 01/29/18 20:29 Urine Color Yellow (Yellow) 01/29/18 20:40 Urine Turbidity Clear (Clear) 01/29/18 20:40 Urine pH 5.0 (5.0-7.0) 01/29/18 20:40 Ur Specific [place] 1.017 (1.003-1.030) 01/29/18 20:40 Urine Protein <15 mg/dl mg/dL (Negative) 01/29/18 20:40 Urine Glucose (UA) Neg mg/dL (Negative) 01/29/18 20:40 Urine Ketones Neg mg/dL (Negative) 01/29/18 20:40 Urine Blood Mod (Negative) 01/29/18 20:40 Urine Nitrite Neg (Negative) 01/29/18 20:40 Urine Bilirubin Neg (Negative) 01/29/18 20:40 Urine Urobilinogen < 2.0 mg/dL (<2.0) 01/29/18 20:40 Ur Leukocyte Esterase Neg (Negative) 01/29/18 20:40 Urine WBC (Auto) 2.0 /HPF (0.0-6.0) 01/29/18 20:40 Urine RBC (Auto) 13.0 /HPF (0.0-6.0) 01/29/18 20:40 Urine Mucus Few /HPF 01/29/18 20:40 Salicylates < 0.3 mg/dL (2.8-20.0) L 01/29/18 20:29 Urine Opiates Screen Presumptive negative 01/29/18 20:40 Urine Methadone Screen Presumptive negative 01/29/18 20:40 Acetaminophen < 5.0 ug/mL (10.0-30.0) L 01/30/18 18:17 Ur Barbiturates Screen Presumptive negative 01/29/18 20:40 Ur Phencyclidine Scrn Presumptive negative 01/29/18 20:40 Ur Amphetamines Screen Presumptive negative 01/29/18 20:40 U Benzodiazepines Scrn Presumptive negative 01/29/18 20:40 Urine Cocaine Screen Presumptive negative 01/29/18 20:40 U Marijuana (THC) Screen Presumptive negative 01/29/18 20:40 Drugs of Abuse Note Disclamer 01/29/18 20:40 Plasma/Serum Alcohol 0.06 % (0-0.07) 01/29/18 20:29
[2018-02-03] MEDS: HEPARIN SUB-Q SCH ×2 (09:33→22:34)
[2018-02-03] MEDS: ZOLOFT PO SCH (10:59)
--- NOTE | 2018-02-03 11:24 | Progress Note ---
Assessment and Plan Assessment and plan: Patient's [id number] female with extensive history of depression and also family history of depression was admitted to the hospital after she was found unresponsive following taking large amounts of suspected Tylenol pills was a suicidal note by her side to cremate her. On admission the patient was monitored in the ICU following initial administration of 450 mg of acetylcysteine. Her Tylenol level and liver enzymes are monitored which have remained stable. She was significantly improved and transferred out of the ICU to the medical floor she continues to do very well without any respiratory, gastroenterology or cardiac complaints. Acetaminophen overdose. Suicide attempt Depression, major HTN History of bipolar disorder Plan Continue current 1013. Discontinue IV fluids, patient tolerating diet PRN Hydralazine Will add low dose ACEI Zoflot and Visteril started per PSYCHIATRY Extensive counselling greater than 15 mins provided Patient is medically stable for transfer to inpatient Psych Family a little agitated about why patient is still 1013 and in the hospital. Psych team has explained to them DVT/GI prophy Plan discussed with patient and the Psych team. Awaiting placement by psych History Interval history: Patient is seen today for: Suicidal attempt, overdose intentional. Seen and examined at bedside; 24hour events reviewed; nursing staff ; no adverse overnight events reported to me; Denies any chest pain, nausea, vomiting , diarrhea No fever noted blood pressure controlled Hospitalist Physical - Physical exam Narrative exam: VITAL SIGNS: Reviewed. GENERAL: The patient appeared well nourished and normally developed. Vital signs as documented. HEAD: No signs of head trauma. EYES: Pupils are equal. Extraocular motions intact. EARS: Hearing grossly intact. MOUTH: Oropharynx is normal. NECK: No adenopathy, no JVD. CHEST: Chest with clear breath sounds bilaterally. No wheezes, rales, or rhonchi. CARDIAC: Regular rate and rhythm. S1 and S2, without murmurs, gallops, or rubs. VASCULAR: No Edema. Peripheral pulses normal and equal in all extremities. ABDOMEN: Soft, without detectable tenderness. No sign of distention. No rebound or guarding, and no masses palpated. Bowel Sounds normal. MUSCULOSKELETAL: Good range of motion of all major joints. Extremities without clubbing, cyanosis or edema. NEUROLOGIC EXAM: Alert and oriented x 3. No focal sensory or strength deficits. Speech normal. Follows commands. PSYCHIATRIC: Mood normal. SKIN: Old well-healed scars. - Constitutional Vitals: Temp Pulse Resp BP Pulse Ox 98.1 F 79 18 148/85 98 02/03/18 08:47 02/03/18 08:47 02/03/18 08:47 02/03/18 08:47 02/03/18 08:47 Results - Labs CBC & Chem 7: 01/29/18 20:01/29/18 20:29 Labs: Laboratory Last Values WBC 4.0 K/mm3 (4.5-11.0) L 01/29/18 20: RBC 4.50 M/mm3 (3.65-5.03) 01/29/18 20: Hgb 12.3 gm/dl (10.1-14.3) 01/29/18 20: Hct 36.8 % (30.3-42.9) 01/29/18 20: MCV 82 fl (79-97) 01/29/18 20: MCH 27 pg (28-32) L 01/29/18 20: MCHC 34 % (30-34) 01/29/18 20: RDW 14.4 % (13.2-15.2) 01/29/18 20: Plt Count 336 K/mm3 (140-440) 01/29/18 20: Lymph % (Auto) 37.3 % (13.4-35.0) H 01/29/18 20: [place] % (Auto) 9.1 % (0.0-7.3) H 01/29/18: Eos % (Auto) 5.1 % (0.0-4.3) H 01/29/18 20: Baso % (Auto) 0.6 % (0.0-1.8) 01/29/18 20: Lymph # 1.5 K/mm3 (1.2-5.4) 01/29/18 20: [place] # 0.4 K/mm3 (0.0-0.8) 01/29/18 20: Eos # 0.2 K/mm3 (0.0-0.4) 01/29/18 20: Baso # 0.0 K/mm3 (0.0-0.1) 01/29/18 20: Seg Neutrophils % 47.9 % (40.0-70.0) 01/29/18 20:29 Seg Neutrophils # 1.9 K/mm3 (1.8-7.7) 01/29/18 20:29 PT 13.6 Sec. (12.2-14.9) 01/31/18 05:28 INR 0.99 (0.87-1.13) 01/31/18 05:28 POC ABG pH 7.370 (7.35-7.45) 01/29/18 21:01 POC ABG pCO2 41.2 (35-45) 01/29/18 21:01 POC ABG pO2 135 (80-105) H 01/29/18 21:01 POC ABG HCO3 23.8 01/29/18 21:01 POC ABG Total CO2 25 01/29/18 21:01 POC ABG O2 Sat 99 01/29/18 21:01 POC ABG Base Excess -1 01/29/18 21: FiO2 28 % 01/29/18 21:01 Sodium 140 mmol/L (137-145) 01/29/18 20:29 Potassium 3.6 mmol/L (3.6-5.0) 01/29/18 20: Chloride 102.2 mmol/L (98-107) 01/29/18 20: Carbon Dioxide 24 mmol/L (22-30) 01/29/18 20:29 Anion Gap 17 mmol/L 01/29/18 20:29 BUN 12 mg/dL (7-17) 01/29/18 20:29 Creatinine 0.6 mg/dL (0.7-1.2) L 01/29/18 20:29 Estimated GFR > 60 ml/min 01/29/18 20:29 BUN/Creatinine Ratio 20 % 01/29/18 20:29 Glucose 111 mg/dL (65-100) H 01/29/18 20: Calcium 9.0 mg/dL (8.4-10.2) 01/29/18 20: Magnesium 1.70 mg/dL (1.7-2.3) 01/30/18 02:46 Total Bilirubin 0.40 mg/dL (0.1-1.2) 01/31/18 05:28 Direct Bilirubin < 0.2 mg/dL (0-0.2) 01/31/18 05:28 Indirect Bilirubin 0.2 mg/dL 01/31/18 05:28 AST 9 units/L (5-40) 01/31/18 05:28 ALT 12 units/L (7-56) 01/31/18 05:28 Alkaline Phosphatase 71 units/L (35-129) 01/31/18 05:28 Total Creatine Kinase 100 units/L (30-135) 01/29/18 21:13 CK-MB (CK-2) 1.1 ng/mL (0.0-4.0) 01/29/18 21:13 CK-MB (CK-2) Rel Index 1.1 (0-4) 01/29/18 21:13 Troponin T < 0.010 ng/mL (0.00-0.029) 01/29/18 21:13 Total Protein 6.8 g/dL (6.3-8.2) 01/31/18 05:28 Albumin 3.6 g/dL (3.9-5) L 01/31/18 05:28 Albumin/Globulin Ratio 1.1 % 01/31/18 05:28 HCG, Qual Negative (Negative) 01/29/18 20:29 Urine Color Yellow (Yellow) 01/29/18 20:40 Urine Turbidity Clear (Clear) 01/29/18 20:40 Urine pH 5.0 (5.0-7.0) 01/29/18 20:40 Ur Specific [place] 1.017 (1.003-1.030) 01/29/18 20:40 Urine Protein <15 mg/dl mg/dL (Negative) 01/29/18 20:40 Urine Glucose (UA) Neg mg/dL (Negative) 01/29/18 20:40 Urine Ketones Neg mg/dL (Negative) 01/29/18 20:40 Urine Blood Mod (Negative) 01/29/18 20:40 Urine Nitrite Neg (Negative) 01/29/18 20:40 Urine Bilirubin Neg (Negative) 01/29/18 20:40 Urine Urobilinogen < 2.0 mg/dL (<2.0) 01/29/18 20:40 Ur Leukocyte Esterase Neg (Negative) 01/29/18 20:40 Urine WBC (Auto) 2.0 /HPF (0.0-6.0) 01/29/18 20:40 Urine RBC (Auto) 13.0 /HPF (0.0-6.0) 01/29/18 20:40 Urine Mucus Few /HPF 01/29/18 20:40 Salicylates < 0.3 mg/dL (2.8-20.0) L 01/29/18 20:29 Urine Opiates Screen Presumptive negative 01/29/18 20:40 Urine Methadone Screen Presumptive negative 01/29/18 20:40 Acetaminophen < 5.0 ug/mL (10.0-30.0) L 01/30/18 18:17 Ur Barbiturates Screen Presumptive negative 01/29/18 20:40 Ur Phencyclidine Scrn Presumptive negative 01/29/18 20:40 Ur Amphetamines Screen Presumptive negative 01/29/18 20:40 U Benzodiazepines Scrn Presumptive negative 01/29/18 20:40 Urine Cocaine Screen Presumptive negative 01/29/18 20:40 U Marijuana (THC) Screen Presumptive negative 01/29/18 20:40 Drugs of Abuse Note Disclamer 01/29/18 20:40 Plasma/Serum Alcohol 0.06 % (0-0.07) 01/29/18 20:29
[2018-02-03] MEDS: BUSPAR PO SCH ×2 (14:36→22:34)
[2018-02-03] MEDS ORDERED: APRESOLINE PO PRN (14:40)
--- NOTE | 2018-02-03 15:58 | Progress Note ---
Subjective - Reason for Consult Consult date: 02/03/18 Reason for consult: Psychiatry Follow-up - Chief Complaint Chief complaint: "When can I leave" 32 y.o. AA female presenting to the ER for overdose. Today the patient is calm and cooperative during the assessment. The patient was occupied by her aunt Ashley Aiken a clinical psychologist, Mr Ellis Norton her , and her mother. The patient had several questions about why she cannot be discharged. It was explained to everyone the steps that's taken before a patient is discharged from the hospital who was on a 1013. Also, they were informed of the process how a patient is referred to a mental health facility and certain variables that can slow that process. The patient's aunt Ms Aiken, stated that she has recommended different intervention plans for the patient (therapy and counseling). The patient acknowledged several times during my assessment that her stress is brought on by marital conflict with her . The patient is fixated on being discharged with minimal strategies she can use to prevent this type of crisis again in the future. Her mother, aunt, and is her support system. She denies SI/HI's and AVH's. She stated that she's experiencing anxiety. Mental Status Exam - Vital signs Last Vital Signs Temp 98.6 F 02/03/18 12:36 Pulse 83 02/03/18 12:36 Resp 18 02/03/18 12:36 BP 151/100 02/03/18 12:36 Pulse Ox 95 02/03/18 12:36 - Exam Narrative exam: MSE: Appearance: calm Behavior: regular eye contact Speech: regular rate and tone Mood: "okay" Affect: congruent to mood Thought Process: circumstantial Thought Content: denies SI/HI's and AVH's Motor Activity: lying in bed Cognition: A/O x3 Insight: fair Judgment: variable Assessment and Plan Impression: MDD, Severe Type. R/O Alcohol Use DO. Today the patient is calm during the assessment. Alcohol serum on admission 0.06. Today the patient is minimizing her actions. Family dynamic issues with this patient. DDx: R/O Bipolar DO, R/O Personality DO Recommendation/Plan: Continue 1013 with placement to inpatient psy services. Continue Zoloft 50 mg PO daily for depression and start Buspar 10 mg PO BID for anxiety. Discussed possible suicidality/medication induced precious with patient reference Stephanie. Discussed generalized coping skills with patient. Discussed the importance to abstain from excessive alcohol consumption (etoh).
[2018-02-03] MEDS: ZESTRIL PO SCH (16:33)
--- NOTE | 2018-02-04 07:58 | Progress Note ---
Assessment and Plan Assessment and plan: Patient's [id number] female with extensive history of depression and also family history of depression was admitted to the hospital after she was found unresponsive following taking large amounts of suspected Tylenol pills was a suicidal note by her side to cremate her. On admission the patient was monitored in the ICU following initial administration of 450 mg of acetylcysteine. Her Tylenol level and liver enzymes are monitored which have remained stable. She was significantly improved and transferred out of the ICU to the medical floor she continues to do very well without any respiratory, gastroenterology or cardiac complaints. Acetaminophen overdose. Suicide attempt Depression, major HTN History of Bipolar disorder Plan Continue current 1013. Discontinue IV fluids, patient tolerating diet PRN Hydralazine Will add low dose ACEI Zoflot and Vistaril started per PSYCHIATRY Extensive counselling greater than 15 mins provided Patient is medically stable for transfer to inpatient Psych Family a little agitated about why patient is still 1013 and in the hospital. Psych team has explained to them DVT/GI prophy Plan discussed with patient and the Psych team. Awaiting placement by psych Pending placement by psych, Patients self pay status maybe affecting this. History Interval history: Patient is seen today for: Suicidal attempt, overdose intentional. Seen and examined at bedside; 24hour events reviewed; nursing staff ; no adverse overnight events reported to me; Denies any chest pain, nausea, vomiting , diarrhea No fever noted blood pressure controlled Hospitalist Physical - Physical exam Narrative exam: VITAL SIGNS: Reviewed. GENERAL: The patient appeared well nourished and normally developed. Vital signs as documented. HEAD: No signs of head trauma. EYES: Pupils are equal. Extraocular motions intact. EARS: Hearing grossly intact. MOUTH: Oropharynx is normal. NECK: No adenopathy, no JVD. CHEST: Chest with clear breath sounds bilaterally. No wheezes, rales, or rhonchi. CARDIAC: Regular rate and rhythm. S1 and S2, without murmurs, gallops, or rubs. VASCULAR: No Edema. Peripheral pulses normal and equal in all extremities. ABDOMEN: Soft, without detectable tenderness. No sign of distention. No rebound or guarding, and no masses palpated. Bowel Sounds normal. MUSCULOSKELETAL: Good range of motion of all major joints. Extremities without clubbing, cyanosis or edema. NEUROLOGIC EXAM: Alert and oriented x 3. No focal sensory or strength deficits. Speech normal. Follows commands. PSYCHIATRIC: Mood normal. SKIN: Old well-healed scars. - Constitutional Vitals: Temp Pulse Resp BP Pulse Ox 97.8 F 79 16 139/88 97 02/03/18 22:50 02/03/18 22:50 02/03/18 22:50 02/03/18 22:50 02/03/18 22:50 Results - Labs CBC & Chem 7: 01/29/18 20:29 01/29/18 20: Labs: Laboratory Last Values WBC 4.0 K/mm3 (4.5-11.0) L 01/29/18 20: RBC 4.50 M/mm3 (3.65-5.03) 01/29/18 20: Hgb 12.3 gm/dl (10.1-14.3) 01/29/18 20: Hct 36.8 % (30.3-42.9) 01/29/18 20: MCV 82 fl (79-97) 01/29/18 20: MCH 27 pg (28-32) L 01/29/18 20: MCHC 34 % (30-34) 01/29/18 20: RDW 14.4 % (13.2-15.2) 01/29/18 20: Plt Count 336 K/mm3 (140-440) 01/29/18 20: Lymph % (Auto) 37.3 % (13.4-35.0) H 01/29/18 20: [place] % (Auto) 9.1 % (0.0-7.3) H 01/29/18 20: Eos % (Auto) 5.1 % (0.0-4.3) H 01/29/18 20:29 Baso % (Auto) 0.6 % (0.0-1.8) 01/29/18 20: Lymph # 1.5 K/mm3 (1.2-5.4) 01/29/18 20: [place] # 0.4 K/mm3 (0.0-0.8) 01/29/18 20: Eos # 0.2 K/mm3 (0.0-0.4) 01/29/18 20: Baso # 0.0 K/mm3 (0.0-0.1) 01/29/18: Seg Neutrophils % 47.9 % (40.0-70.0) 01/29/18 20: Seg Neutrophils # 1.9 K/mm3 (1.8-7.7) 01/29/18 20: PT 13.6 Sec. (12.2-14.9) 01/31/18 05:28 INR 0.99 (0.87-1.13) 01/31/18 05:28 POC ABG pH 7.370 (7.35-7.45) 01/29/18 21:01 POC ABG pCO2 41.2 (35-45) 01/29/18 21: POC ABG pO2 135 (80-105) H 01/29/18 21:01 POC ABG HCO3 23.8 01/29/18 21:01 POC ABG Total CO2 25 01/29/18 21:01 POC ABG O2 Sat 99 01/29/18 21:01 POC ABG Base Excess -1 01/29/18 21:01 FiO2 28 % 01/29/18 21:01 Sodium 140 mmol/L (137-145) 01/29/18 20:29 Potassium 3.6 mmol/L (3.6-5.0) 01/29/18 20: Chloride 102.2 mmol/L (98-107) 01/29/18 20: Carbon Dioxide 24 mmol/L (22-30) 01/29/18 20:29 Anion Gap 17 mmol/L 01/29/18 20:29 BUN 12 mg/dL (7-17) 01/29/18 20: Creatinine 0.6 mg/dL (0.7-1.2) L 01/29/18 20:29 Estimated GFR > 60 ml/min 01/29/18 20:29 BUN/Creatinine Ratio 20 % 01/29/18 20: Glucose 111 mg/dL (65-100) H 01/29/18 20: Calcium 9.0 mg/dL (8.4-10.2) 01/29/18 20: Magnesium 1.70 mg/dL (1.7-2.3) 01/30/18 02:46 Total Bilirubin 0.40 mg/dL (0.1-1.2) 01/31/18 05:28 Direct Bilirubin < 0.2 mg/dL (0-0.2) 01/31/18 05:28 Indirect Bilirubin 0.2 mg/dL 01/31/18 05:28 AST 9 units/L (5-40) 01/31/18 05:28 ALT 12 units/L (7-56) 01/31/18 05:28 Alkaline Phosphatase 71 units/L (35-129) 01/31/18 05:28 Total Creatine Kinase 100 units/L (30-135) 01/29/18 21:13 CK-MB (CK-2) 1.1 ng/mL (0.0-4.0) 01/29/18 21:13 CK-MB (CK-2) Rel Index 1.1 (0-4) 01/29/18 21:13 Troponin T < 0.010 ng/mL (0.00-0.029) 01/29/18 21:13 Total Protein 6.8 g/dL (6.3-8.2) 01/31/18 05:28 Albumin 3.6 g/dL (3.9-5) L 01/31/18 05:28 Albumin/Globulin Ratio 1.1 % 01/31/18 05:28 HCG, Qual Negative (Negative) 01/29/18 20:29 Urine Color Yellow (Yellow) 01/29/18 20:40 Urine Turbidity Clear (Clear) 01/29/18 20:40 Urine pH 5.0 (5.0-7.0) 01/29/18 20:40 Ur Specific [place] 1.017 (1.003-1.030) 01/29/18 20:40 Urine Protein <15 mg/dl mg/dL (Negative) 01/29/18 20:40 Urine Glucose (UA) Neg mg/dL (Negative) 01/29/18 20:40 Urine Ketones Neg mg/dL (Negative) 01/29/18 20:40 Urine Blood Mod (Negative) 01/29/18 20:40 Urine Nitrite Neg (Negative) 01/29/18 20:40 Urine Bilirubin Neg (Negative) 01/29/18 20:40 Urine Urobilinogen < 2.0 mg/dL (<2.0) 01/29/18 20:40 Ur Leukocyte Esterase Neg (Negative) 01/29/18 20:40 Urine WBC (Auto) 2.0 /HPF (0.0-6.0) 01/29/18 20:40 Urine RBC (Auto) 13.0 /HPF (0.0-6.0) 01/29/18 20:40 Urine Mucus Few /HPF 01/29/18 20:40 Salicylates < 0.3 mg/dL (2.8-20.0) L 01/29/18 20:29 Urine Opiates Screen Presumptive negative 01/29/18 20:40 Urine Methadone Screen Presumptive negative 01/29/18 20:40 Acetaminophen < 5.0 ug/mL (10.0-30.0) L 01/30/18 18:17 Ur Barbiturates Screen Presumptive negative 01/29/18 20:40 Ur Phencyclidine Scrn Presumptive negative 01/29/18 20:40 Ur Amphetamines Screen Presumptive negative 01/29/18 20:40 U Benzodiazepines Scrn Presumptive negative 01/29/18 20:40 Urine Cocaine Screen Presumptive negative 01/29/18 20:40 U Marijuana (THC) Screen Presumptive negative 01/29/18 20:40 Drugs of Abuse Note Disclamer 01/29/18 20:40 Plasma/Serum Alcohol 0.06 % (0-0.07) 01/29/18 20:29
[2018-02-04] MEDS: ZOLOFT PO SCH (09:08)
[2018-02-04] MEDS: HEPARIN SUB-Q SCH ×2 (09:09→21:30)
[2018-02-04] MEDS: ZESTRIL PO SCH (09:09)
[2018-02-04] MEDS: BUSPAR PO SCH ×2 (09:09→21:29)
[2018-02-04] MEDS ORDERED: ZESTRIL PO SCH (10:00)
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
[2018-02-05] MEDS: HEPARIN SUB-Q SCH (10:32)
[2018-02-05] MEDS: ZOLOFT PO SCH (10:33)
[2018-02-05] MEDS: BUSPAR PO SCH (10:33)
[2018-02-05] MEDS: ZESTRIL PO SCH (10:34)
--- NOTE | 2018-02-05 12:18 | Progress Note ---
Assessment and Plan Assessment and plan: Patient's [id number] female with extensive history of depression and also family history of depression was admitted to the hospital after she was found unresponsive following taking large amounts of suspected Tylenol pills was a suicidal note by her side to cremate her. On admission the patient was monitored in the ICU following initial administration of 450 mg of acetylcysteine. Her Tylenol level and liver enzymes are monitored which have remained stable. She was significantly improved and transferred out of the ICU to the medical floor she continues to do very well without any respiratory, gastroenterology or cardiac complaints. Acetaminophen overdose. Suicide attempt Depression, major HTN History of Bipolar disorder etoh abuse Plan Continue current 1013. MAnagement per Psych Discontinue IV fluids, patient tolerating diet PRN Hydralazine Will add low dose ACEI Zoflot and Vistaril started per PSYCHIATRY Extensive counselling greater than 15 mins provided Patient is medically stable for transfer to inpatient Psych Family a little agitated about why patient is still 1013 and in the hospital. Psych team has explained to them DVT/GI prophy Plan discussed with patient and the Psych team. Awaiting placement by psych Pending placement by psych, Patients self pay status maybe affecting this. Hospitalist Physical - Constitutional Vitals: Temp Pulse Resp BP Pulse Ox 98.3 F 72 20 135/87 97 02/05/18 07:50 02/05/18 10:34 02/05/18 08:52 02/05/18 10:34 02/05/18 07:50 Results - Labs CBC & Chem 7: 01/29/18 20:29 01/29/18 20:29 Labs: Laboratory Last Values WBC 4.0 K/mm3 (4.5-11.0) L 01/29/18 20:29 RBC 4.50 M/mm3 (3.65-5.03) 01/29/18 20:29 Hgb 12.3 gm/dl (10.1-14.3) 01/29/18 20: Hct 36.8 % (30.3-42.9) 01/29/18 20: MCV 82 fl (79-97) 01/29/18 20: MCH 27 pg (28-32) L 01/29/18 20: MCHC 34 % (30-34) 01/29/18 20:29 RDW 14.4 % (13.2-15.2) 01/29/18 20: Plt Count 336 K/mm3 (140-440) 01/29/18 20: Lymph % (Auto) 37.3 % (13.4-35.0) H 01/29/18 20:29 [place] % (Auto) 9.1 % (0.0-7.3) H 01/29/18 20: Eos % (Auto) 5.1 % (0.0-4.3) H 01/29/18 20: Baso % (Auto) 0.6 % (0.0-1.8) 01/29/18 20: Lymph # 1.5 K/mm3 (1.2-5.4) 01/29/18 20: [place] # 0.4 K/mm3 (0.0-0.8) 01/29/18 20: Eos # 0.2 K/mm3 (0.0-0.4) 01/29/18: Baso # 0.0 K/mm3 (0.0-0.1) 01/29/18 20: Seg Neutrophils % 47.9 % (40.0-70.0) 01/29/18 20: Seg Neutrophils # 1.9 K/mm3 (1.8-7.7) 01/29/18 20: PT 13.6 Sec. (12.2-14.9) 01/31/18 05:28 INR 0.99 (0.87-1.13) 01/31/18 05:28 POC ABG pH 7.370 (7.35-7.45) 01/29/18 21:01 POC ABG pCO2 41.2 (35-45) 01/29/18 21:01 POC ABG pO2 135 (80-105) H 01/29/18 21:01 POC ABG HCO3 23.8 01/29/18 21:01 POC ABG Total CO2 25 01/29/18 21:01 POC ABG O2 Sat 99 01/29/18 21:01 POC ABG Base Excess -1 01/29/18 21: FiO2 28 % 01/29/18 21: Sodium 140 mmol/L (137-145) 01/29/18 20: Potassium 3.6 mmol/L (3.6-5.0) 01/29/18 20:29 Chloride 102.2 mmol/L (98-107) 01/29/18 20:29 Carbon Dioxide 24 mmol/L (22-30) 01/29/18 20:29 Anion Gap 17 mmol/L 01/29/18 20:29 BUN 12 mg/dL (7-17) 01/29/18 20:29 Creatinine 0.6 mg/dL (0.7-1.2) L 01/29/18 20:29 Estimated GFR > 60 ml/min 01/29/18 20:29 BUN/Creatinine Ratio 20 % 01/29/18 20:29 Glucose 111 mg/dL (65-100) H 01/29/18 20:29 Calcium 9.0 mg/dL (8.4-10.2) 01/29/18 20:29 Magnesium 1.70 mg/dL (1.7-2.3) 01/30/18 02:46 Total Bilirubin 0.40 mg/dL (0.1-1.2) 01/31/18 05:28 Direct Bilirubin < 0.2 mg/dL (0-0.2) 01/31/18 05:28 Indirect Bilirubin 0.2 mg/dL 01/31/18 05:28 AST 9 units/L (5-40) 01/31/18 05:28 ALT 12 units/L (7-56) 01/31/18 05:28 Alkaline Phosphatase 71 units/L (35-129) 01/31/18 05:28 Total Creatine Kinase 100 units/L (30-135) 01/29/18 21:13 CK-MB (CK-2) 1.1 ng/mL (0.0-4.0) 01/29/18 21:13 CK-MB (CK-2) Rel Index 1.1 (0-4) 01/29/18 21:13 Troponin T < 0.010 ng/mL (0.00-0.029) 01/29/18 21:13 Total Protein 6.8 g/dL (6.3-8.2) 01/31/18 05:28 Albumin 3.6 g/dL (3.9-5) L 01/31/18 05:28 Albumin/Globulin Ratio 1.1 % 01/31/18 05:28 HCG, Qual Negative (Negative) 01/29/18 20:29 Urine Color Yellow (Yellow) 01/29/18 20:40 Urine Turbidity Clear (Clear) 01/29/18 20:40 Urine pH 5.0 (5.0-7.0) 01/29/18 20:40 Ur Specific Palm 1.017 (1.003-1.030) 01/29/18 20:40 Urine Protein <15 mg/dl mg/dL (Negative) 01/29/18 20:40 Urine Glucose (UA) Neg mg/dL (Negative) 01/29/18 20:40 Urine Ketones Neg mg/dL (Negative) 01/29/18 20:40 Urine Blood Mod (Negative) 01/29/18 20:40 Urine Nitrite Neg (Negative) 01/29/18 20:40 Urine Bilirubin Neg (Negative) 01/29/18 20:40 Urine Urobilinogen < 2.0 mg/dL (<2.0) 01/29/18 20:40 Ur Leukocyte Esterase Neg (Negative) 01/29/18 20:40 Urine WBC (Auto) 2.0 /HPF (0.0-6.0) 01/29/18 20:40 Urine RBC (Auto) 13.0 /HPF (0.0-6.0) 01/29/18 20:40 Urine Mucus Few /HPF 01/29/18 20:40 Salicylates < 0.3 mg/dL (2.8-20.0) L 01/29/18 20:29 Urine Opiates Screen Presumptive negative 01/29/18 20:40 Urine Methadone Screen Presumptive negative 01/29/18 20:40 Acetaminophen < 5.0 ug/mL (10.0-30.0) L 01/30/18 18:17 Ur Barbiturates Screen Presumptive negative 01/29/18 20:40 Ur Phencyclidine Scrn Presumptive negative 01/29/18 20:40 Ur Amphetamines Screen Presumptive negative 01/29/18 20:40 U Benzodiazepines Scrn Presumptive negative 01/29/18 20:40 Urine Cocaine Screen Presumptive negative 01/29/18 20:40 U Marijuana (THC) Screen Presumptive negative 01/29/18 20:40 Drugs of Abuse Note Disclamer 01/29/18 20:40 Plasma/Serum Alcohol 0.06 % (0-0.07) 01/29/18 20:29
[2018-02-05 16:53] VITALS: BP 150/98
--- NOTE | 2018-02-05 17:28 | Progress Note ---
Subjective - Reason for Consult Consult date: 02/05/18 Reason for consult: follow up - Chief Complaint Chief complaint: "I'm fine." 32 y.o. AA female presenting to the ER for overdose. Today the patient is calm and cooperative. She reports her thinking is the same as yesterday. She reports she no longer wants to harm herself. She states her family is supportive, and her mother will be staying with her. She and have resolved their dispute. Jessica reports she feels safe with her . They were interviewed separately. No acute safety concerns were identified. She is willing to participate in outpatient treatment for counseling. Mental Status Exam - Vital signs Last Vital Signs Temp 98.9 F 02/05/18 16:42 Pulse 116 H 02/05/18 16:42 Resp 20 02/05/18 16:42 BP 150/98 02/05/18 16:41 Pulse Ox 98 02/05/18 16:42 - Exam Narrative exam: MSE: Appearance: calm Behavior: regular eye contact Speech: regular rate and tone Mood: "fine" Affect: congruent to mood Thought Process: circumstantial Thought Content: denies SI/HI's and AVH's Motor Activity: lying in bed Cognition: A/O x3 Insight: fair Judgment: variable Assessment and Plan Impression: MDD, Severe Type. R/O Alcohol Use DO. Today the patient is calm and cooperative. She is willing to participate in outpatient treatment for counseling. She denies cravings or urges to drink. She states she does not regularly drink alcohol. No acute safety concerns identified. The acute stressor appears to have been addressed. Her mother is now involved in her care and will be staying with her. She will start working tomorrow. She reports that will help with the financial burden. At the time of evaluation, she is determined to be low risk for suicide. DDx: R/O Bipolar DO, R/O Personality DO Recommendation/Plan: Rescind 1013. Continue Zoloft 50 mg PO daily for depression Continue Buspar 10 mg PO BID for anxiety. Discussed the importance to abstain from excessive alcohol consumption (etoh). Counseling and psychiatric outpatient treatment recommended. She was provided with referral recommendations to [facility] [phone] Call 911 if suicidal ideation occurs. National Suicide Prevention Lifeline information provided www.suicidepreventionlifeline.org
== END 2018-02-05 17:00 | disposition home or self-care (01) | DRG 918 ==
LOC: ED 20:09 → CC1 01-30 00:28 → EEVIPCON 01-30 00:28 → CC1 01-30 06:55 → 3A 01-30 21:11
PROVIDERS: ADMIT Internal Medicine; ATTEND Internal Medicine
DX: T39.1X2A Poisoning by 4-Aminophenol derivatives, intentional self-harm, initial encounter (principal); F32.2 Major depressive disorder, single episode, severe without psychotic features; Z88.2 Allergy status to sulfonamides; F17.200 Nicotine dependence, unspecified, uncomplicated; Y92.89 Other specified places as the place of occurrence of the external cause; F10.10 Alcohol abuse, uncomplicated; Y90.9 Presence of alcohol in blood, level not specified
CPT/HCPCS: 36415; 71045; 80048; 80074; 80307; 80320; 81001; 82550; 82553; 82803; 83735; 84450; 84460; 84484; 84703; 85025; 85610; 93005; 93010; 96361; 96365; 96366; 96367; 96375; G0480; J0132; J0360; J1644; J2405; J2765; J7030; J7060; J7070; Q0177